=== PATIENT | male | born 1955 | race Caucasian/White ===

== ENCOUNTER 2016-12-08 03:37 | Inpatient (IN) | payer OTHER ==
[~2016-12-08] VITALS: Ht 180.3 cm; Wt 147.9 kg
[~2016-12-08 03:37] MED LIST: AMLODIPINE BESYL5 M1 PO; FLOMAX0.4 M1 PO; LIPITOR10 M1 PO; LOSARTAN-HCTZ1 EAC2 PO; MULTIVITAMINS1 EAC9 PO; PRESERVISION A1 EAC1 PO; PROVENTIL HFA6.7 GM PO
[2016-12-08] MEDS ORDERED: COLACE100 M1 PO (10:42)
[2016-12-08] MEDS ORDERED: MIRALAX17 G1 PO (10:42)
[2016-12-08] MEDS ORDERED: DILAUDID4 M1 PO (10:42)
[2016-12-08] MEDS ORDERED: MS CONTIN30 M1 PO (10:42)
[2016-12-08] MEDS ORDERED: ASPIRIN EC325 M2 PO (10:42)
--- NOTE | 2016-12-08 10:44 | Patient Discharge Instructions ---
Discharge Instructions General Discharge Information You were seen/treated for: knee pain You had these procedures: total knee replacement Watch for these problems: temp>101, increased redness or drainage of wounds No bath, but you may shower: Yes Other wound care: Keep incisions clean and dry, may shower no bathing or soaking Diet Recommended Diet: Heart Healthy Activity Activity Self Limited: Yes Activity Limited to: Weight bear as tolerated Acute Coronary Syndrome Inclusion Criteria At DC or during hospital stay patient has or had the following: ACS DIAGNOSIS No Discharge Core Measures Meds if any: Prescribed or Continued at Discharge Meds if any: NOT Prescribed or Continued at Discharge Congestive Heart Failure Inclusion Criteria At DC or during hospital stay patient has or had the following: CHF DIAGNOSIS No Discharge Core Measures Meds if any: Prescribed or Continued at Discharge Meds if any: NOT Prescribed or Continued at Discharge Cerebrovascular accident Inclusion Criteria At DC or during hospital stay patient has or had the following: CVA/TIA Diagnosis No Discharge Core Measures Meds if any: Prescribed or Continued at Discharge Meds if any: NOT Prescribed or Continued at Discharge Venous thromboembolism Inclusion Criteria VTE Diagnosis No VTE Type NONE VTE Confirmed by (Test) NONE Discharge Core Measures - Per Current guidelines, there needs to be overlap - treatment for the first 5 days of Warfarin therapy. - If discharged on Warfarin prior to 5 days of - overlap therapy, the patient will need to be - assessed for post discharge needs including - *Post discharge parental anticoagulation - *Warfarin and/or parental anticoagulation education - *Follow up date to check INR post discharge At least 5 days overlap therapy as Inpatient No Meds if any: Prescribed or Continued at Discharge Note: Overlap Therapy is Warfarin and Anticoagulant Meds if any: NOT Prescribed or Continued at Discharge
--- NOTE | 2016-12-08 10:46 | Admission Core Measures ---
Admission Meds I reviewed the following Meds: Current Medications Sig/Zahra Start time Last Medication Dose Stop Time Status Admin Albuterol Sulfate 2 PUF Q4P PRN 12/08 1045 AC (Ventolin) Amlodipine Besylate 5 MG QPM 12/08 2200 AC (Norvasc) Atorvastatin Calcium 10 MG QPM 12/08 2199 AC (Lipitor) Losartan Potassium 100 MG DAILY 12/09 1000 AC (Cozaar) Tamsulosin HCl 0.8 MG QPM 12/08 2199 AC (Flomax) Acute Coronary Syndrome Inclusion Criteria ACS Diagnosis No Inpatient Core Measures LDL Reminder: If No, please order W/I first 24hr of stay Congestive Heart Failure Inclusion Criteria CHF Diagnosis No Cerebrovascular accident Inclusion Criteria CVA/TIA Diagnosis No Inpatient Core Measures Bedside Swallow Eval Reminder: If BSE failed, place ST order Antithrombotic Reminder: Order Antithrombotic Medication by end of day 2 Antithrombotic Reminder: Document Reason Antithrombotic Not ordered by end of day 2 AFIB/Flutter Reminder: If Present, add to problem list AFIB/Flutter Reminder: Order Anticoag Medication for pts with AFIB/Flutter Atherosclerosis Reminder: If Present, add to problem list LDL Reminder: If No, please order W/I first 24hr of stay PT Order Reminder: If No, please order Venous thromboembolism Inpatient Core Measures VTE Risk Factors: Age > 40, Surgery VTE Prophylaxis Ordered Inpt Mech & Pharm No Mech VTE prophylaxis d/t No contraindications No VTE Pharm Prophylaxis d/t No contraindications Inclusion Criteria - Per Current guidelines, there needs to be overlap - treatment for the first 5 days of Warfarin therapy. - Parenteral Anticoagulation (IV or SC) needs to be - given along with Warfarin therapy. VTE Diagnosis No VTE Type NONE VTE Confirmed by (Test) NONE Problem List As ranked by this Provider includes Assessment & Plan 1. Status post total knee replacement, left HOME MEDS Home Med List Albuterol Sulfate (Proventil Hfa) 90 MCG HFA.AER.AD 2 PUFF PO EVERY 4 PRN ASTHMA (Reported) Amlodipine Besylate 5 MG TABLET 1 TAB PO NIGHTLY HTN (Reported) Aspirin (Ecotrin*) 325 MG TABLET.DR 1 TAB PO BID BLOOD THINNER Atorvastatin Calcium (Lipitor) 10 MG TABLET 1 TAB PO NIGHTLY CHOL (Reported) Docusate Sodium (Colace) 100 MG CAPSULE 1 CAP PO BID CONSTIPATION Hydromorphone HCl (Dilaudid) 4 MG TABLET 1-2 TAB PO Q4P PAIN Losartan/Hydrochlorothiazide (Losartan-Hctz 100-25 MG Tab) 100 MG-25 MG TABLET 1 TAB PO DAILY HTN (Reported) Morphine Sulfate (Ms Contin) 30 MG TABLET.ER 1 TAB PO BID PAIN Multiple Vitamin (Multivitamins) 1 EACH TABLET 1 TAB PO DAILY PROPHO ( Reported) Polyethylene Glycol 3350 (Miralax) 17 GRAM POWD.PACK 1 PAC PO DAILY CONSTIPATION Tamsulosin HCl (Flomax) 0.4 MG CAP.ER.24H 2 TAB PO NIGHTLY BPH (Reported) Vit C/E/Zn/Coppr/Lutein/Zeaxan (Preservision Areds 2 Softgel) 250-200-40 CAPSULE 1 TAB PO BID EYES (Reported)
--- NOTE | 2016-12-08 10:50 | Surgical Discharge Summary ---
Visit Information Visit Dates Admission Date: 12/08/16 Discharge Date: 12/10/16 History of Present Illness Chief Complaint: Knee pain Surgical History Pertinent Surgical History: none (See H and P) Review of Systems: See H and P Hospital Course Course Attending Physician: СЕРГЕЙ NUNEZ MD Primary Care Physician: DENIS PATRICK,[facility] Course: Pt underwent L TKR on 12/[address] Nunez and was brought to the PACU in stable condition. Over the next couple of days, he was able to tolerated a regular diet, was able to void spontaneously after the sparrow was discontinued and his pain was controlled on oral medication. He was taking ASA 325mg po bid for dvt ppx. He had an ultrasound done on post-op day#1 due to calf tenderness, which was repeated also on post-op day#2 due to persistent tenderness. Both venous doppler studies were negative for dvt. His pain controll improved with the addition of toradol and ms contin. He worked with PT - [facility]AT and was cleared for discharge home with home health services and home PT on post-op day#2. All instructions given. Complications: None Allergies: Coded Allergies: No Known Allergies (12/05/16) Significant Procedures: L TKR - see op report Disposition Summary Disposition Principal Diagnosis: OA, DJD Additional Diagnosis: s/p L TKR Discharge Disposition: home health services Discharge Instructions General Discharge Information Code Status: Full Code Patient's Diet: Heart healthy Patient's Activity: WBAT Follow-Up Instructions/Appts: Keep scheduled appointment or call to be seen within two weeks of surgery Medications at Discharge Discharge Medications: Continue taking these medications: Losartan/Hydrochlorothiazide (Losartan-Hctz 100-25 MG Tab) 100 MG-25 MG TABLET 1 Tablet ORAL DAILY Amlodipine Besylate (Amlodipine Besylate) 5 MG TABLET 1 Tablet ORAL NIGHTLY Tamsulosin HCl (Flomax) 0.4 MG CAP.ER.24H 2 Tablet ORAL NIGHTLY Atorvastatin Calcium (Lipitor) 10 MG TABLET 1 Tablet ORAL NIGHTLY Albuterol Sulfate (Proventil Hfa) 90 MCG HFA.AER.AD 2 PUFF ORAL EVERY 4 as needed for ASTHMA Vit C/E/Zn/Coppr/Lutein/Zeaxan (Preservision Areds 2 Softgel) 250-200-40 CAPSULE 1 Tablet ORAL TWICE DAILY Multiple Vitamin (Multivitamins) 1 EACH TABLET 1 Tablet ORAL DAILY Start taking the following new medications: Morphine Sulfate (Ms Contin) 30 MG TABLET.ER 1 Tablet ORAL TWICE DAILY Qty = 6 No Refills Hydromorphone HCl (Dilaudid) 4 MG TABLET 1-2 Tablet ORAL EVERY 4 HOURS NEEDED Qty = 36 No Refills Docusate Sodium (Colace) 100 MG CAPSULE 1 Capsule ORAL TWICE DAILY Qty = 14 No Refills Polyethylene Glycol 3350 (Miralax) 17 GRAM POWD.PACK 1 Packet ORAL DAILY Qty = 7 No Refills Instructions: dissolve in water Aspirin (Ecotrin*) 325 MG TABLET.DR 1 Tablet ORAL TWICE DAILY Qty = 60 No Refills Copies To: DENIS PATRICK,NAKIA; ENRIQUE PATRICK,СЕРГЕЙ
--- NOTE | 2016-12-08 13:38 | Operative Report ---
Operative/Inv Procedure Report Surgery Date: 12/08/16 Name of Procedure: Total knee replacement Pre-Operative Diagnosis: Primary left knee DJD Post-Operative Diagnosis: Same Estimated Blood Loss: 50ml to 100ml Surgeon/Motor Expert: ENRIQUE PATRICK,СЕРГЕЙ Rai Anesthesia: block Operative/Procedure Note Note: Description of Procedure: The patient was taken to the operating room and positively identified. After induction of spinal anesthesia and administration of appropriate pre-operative antibiotics, the patient was positioned supine on the operating room table and all bony prominences were well padded. A well-padded pneumatic tourniquet was placed on the left upper thigh. After performing a surgical timeout, the left lower extremity was prepped and draped in the usual sterile fashion. After exsanguination with Esmarch the tourniquet was inflated to 260mm of mercury. A standard medial parapatellar approach was made to the knee. This was carried down through skin and subcutaneous tissue to the level of the fascia. Meticulous hemostasis was maintained with Bovie electrocautery. The extensor mechanism and patellar retinaculum were opened sharply and the patella was everted. The infrapatellar fat was resected in order to improve exposure. Osteophytes were trimmed from the patella and femoral condyles and the patella was re-everted and tucked laterally. A medial release was performed and the cruciate ligaments were resected. The tibia was then subluxed anteriorly. Utilizing the appropriate extra-medullary guide, the proximal tibia was trimmed perpendicular to the long axis of the tibial shaft. Attention was then turned to the femur. After opening the medullary canal, the distal femoral cut was made in 6 degrees of valgus utilizing the appropriate intra-medullary guide. The extension gap was checked and found to be appropriate. The femur was then sized and the remainder of the femoral cuts were made with a size 6 4-in-1 femoral cutting guide. The flexion gap was checked and found to be symmetric and appropriate. The knee was then trialed with a size 6 femoral component, a size 7 tibial component and a size 13 mm polyethylene insert. The patella was not resurfaced due to the fact that he had a prior quad tendon repair and it was in reasonably good condition. This yielded excellent range of motion, stability and patellar tracking. All trial components were removed and the knee was copiously irrigated with sterile saline. All components were cemented into place with RIDERS cement. All the components were of the Sivakumar Triathlon knee system of the above stated sizes. The knee was again irrigated after cementation. The extensor mechanism and patellar retinaculum were repaired using interrupted #1 vicryl suture. The skin was re-approximated with 2-0 vicryl and closed with pipo. A sterile dressing was applied, the tourniquet was deflated, the patient was awakened and taken to the recovery room in satisfactory condition.
--- NOTE | 2016-12-08 14:10 | NUR ---
RECEIVED FROM PACU: A 61 YEAR OLD MALE S/P LEFT TOTAL KNEE REPLACEMENT. ALERT ORIENTED X3. SPOUSE AT BEDSIDE. DRESSING TO LEFT KNEE INTACT, DURACOLD IN PLACE. ON-Q PUMP DRESSING INTACT, AT 12ML/HR. IST GIVEN AND INSTRUCTED. DTV BY 1800. URINAL IN PLACE. REVIEWED POC. CALL CALL IN REACH. SEE NURSING ASSESSMENT FLOWSHEETS FOR FURTHER DOCUMENTATION.
[2016-12-08 14:15] VITALS: BP 140/78
[2016-12-08 15:40] VITALS: BP 130/80
--- NOTE | 2016-12-08 15:52 | PN- Orthopedic ---
Subjective Subjective: Post op check OOB - just ambulated with PT Pain is well controlled, no nausea Objective Vital Signs and I&Os Vital Signs Date Time Temp Pulse Resp B/P Pulse O2 O2 Flow FiO2 Ox Delivery Rate 12/08 1415 Room Air 12/08 1415 95.1 68 18 140/78 93 Room Air Intake & Output 12/08 1600 12/08 0800 12/08 0000 12/07 1600 12/07 0800 12/07 0000 Intake Total Output Total Balance Patient 326 lb Weight Physical Exam: VSS, afebrile void: 600 cc General: alert and oriented times three Chest: clear anteriorly bilaterally, RRR Abd: soft, good bs Ext: warm, no edema, positive sensate Wound: dressed, dry, ice pack in place Current Medications: Current Medications Sig/Zahra Start time Last Medication Dose Route Stop Time Status Admin Acetaminophen 975 MG ONCE ONE 12/08 0645 DC 12/08 PO 12/08 0646 0800 Albuterol Sulfate 2 PUF Q4P PRN 12/08 1045 AC INH Amlodipine Besylate 5 MG QPM 12/08 2200 AC PO Aspirin 325 MG BID 12/08 2200 AC PO Atorvastatin Calcium 10 MG QPM 12/08 2200 AC PO Cefazolin Sodium 3 GM Q8H 12/08 1815 DC N/A 1 UNIT IV 12/09 0259 Cefazolin Sodium 3,000 MG Q8H 12/08 1815 AC Sodium Chloride 100 ML IV 12/09 0244 Cefazolin Sodium 3,000 MG ONCE ONE 12/08 0645 DC 12/08 Sodium Chloride 100 ML IV 12/08 0714 1015 Dextrose/Sodium 1,000 ML .[id number] 12/08 1430 AC 12/08 Chloride IV 1430 Docusate Sodium 100 MG BID 12/08 2200 AC PO Fentanyl Citrate 100 MCG .STK-MED ONE 12/08 07 DC IM 12/08 0715 Hydrochlorothiazide 25 MG DAILY 12/09 1000 AC PO Hydromorphone HCl 2 MG Q4P PRN 12/08 1430 AC 12/08 PO 1522 Hydromorphone HCl 4 MG Q4P PRN 12/08 1430 AC PO Losartan Potassium 100 MG DAILY 12/09 1000 AC PO Midazolam HCl 4 MG .STK-MED ONE 12/08 713 DC IM 12/08 0715 Morphine Sulfate 2 MG Q3P PRN 12/08 1430 AC IV Ondansetron HCl 4 MG Q6P PRN 12/08 1430 AC IV Oxycodone HCl 10 MG .STK-MED ONE 12/08 0843 DC PO 12/08 0844 Oxycodone HCl 10 MG ONCE ONE 12/08 0645 DC 12/08 PO 12/08 0646 0800 Polyethylene Glycol 17 GM DAILY 12/09 1000 AC PO Ropivacaine 500 ML ONCE ONE 12/08 1230 AC 12/08 ON-Q Ball 1 BAG INJ 12/10 0609 1245 Tamsulosin HCl 0.8 MG QPM 12/08 2200 AC PO Tranexamic Acid 2,000 MG .STK-MED ONE 12/08 0714 DC IV 12/08 0715 Assessment/Plan Assessment/Plan 61 male s/p L TKR pain management PT-wbat dc ivf - tolerating diet dc home 1-2 days Core Measures/Miscellaneous Venous Thromboembolism VTE Risk Factors: Age > 40, Surgery VTE Contraindications: No Contraindications VTE Prophylaxis Ordered Inpt: Mech & Pharm VTE Diagnosis: No VTE Type: NONE VTE Confirmed by (Test): NONE Beta Iliana Is Beta Iliana a Home Med? No Antibiotics Is Patient on Antibiotics? Yes If Yes: prophylaxis (24 hrs post op)
[2016-12-08 19:12] VITALS: BP 127/69
[2016-12-08 21:11] VITALS: BP 136/42
[2016-12-09 00:02] VITALS: BP 150/62
[2016-12-09 03:21] VITALS: BP 120/70
--- NOTE | 2016-12-09 07:52 | PN- Orthopedic ---
Subjective Subjective: The patient was seen this morning postoperatively day 1. He reports that his pain is not under good control at the current time despite current pain regiment. He has no complaints of current time and denies any chest pain or difficulty breathing. Objective Vital Signs and I&Os Vital Signs Date Time Temp Pulse Resp B/P Pulse O2 O2 Flow FiO2 Ox Delivery Rate 12/09 0321 99.6 89 18 120/70 92 Room Air 12/09 0002 98.0 91 20 150/62 94 Room Air 12/08 2118 98.3 91 20 136/42 12/08 2118 98.3 91 20 136/42 12/08 2111 98.3 91 20 136/42 91 12/08 1912 97.5 77 20 127/69 93 12/08 1540 97.8 73 19 130/80 96 12/08 1415 Room Air 12/08 1415 95.1 68 18 140/78 93 Room Air Intake & Output 12/09 0800 12/09 0000 12/08 1600 12/08 0800 12/08 0000 12/07 1600 Intake Total 120 1190 Output Total 1000 750 Balance -880 440 Intake, IV 150 Intake, Oral 120 1040 Output, Urine 1000 750 Patient 326 lb Weight Physical Exam: Gen.: Alert and complaining of incisional pain Skin: Warm and dry Extremities: Bilateral lower extremities are warm without significant edema. Gross motor and sensory are intact. There is significant left calf tenderness upon palpation. The surgical dressing is clean, dry, and intact. There is an On-Q pain pump intact. Assessment/Plan Assessment/Plan Assessment: 61-year-old male status post left total knee arthroplasty postoperative day #1. The patient's pain is not adequately controlled at the current time and he has calf tenderness upon exam. Plan: Will add 15mg of MS contin q8hrs for additional pain management Hep-Lock IV fluids Follow-up morning laboratory studies GI and DVT prophylaxis Continue aspirin 325mg po bid Out of bed with physical therapy Will order a left lower extremity ultrasound to rule out DVT Core Measures/Miscellaneous Venous Thromboembolism VTE Risk Factors: Age > 40, Surgery VTE Contraindications: No Contraindications VTE Prophylaxis Ordered Inpt: Mech & Pharm VTE Diagnosis: No VTE Type: NONE VTE Confirmed by (Test): NONE Beta Iliana Is Beta Iliana a Home Med? No Antibiotics Is Patient on Antibiotics? No
[2016-12-09 08:02] LABS: ABSOLUTE BASOPHIL COUNT 0 /CUMM (0.0-0.2); ABSOLUTE EOSINOPHIL COUNT 0 /CUMM (0.0-0.7); ABSOLUTE GRANULOCYTE CT 17.7 /CUMM (1.4-6.5); ABSOLUTE LYMPH COUNT 1.5 /CUMM (1.2-3.4); ABSOLUTE MONOCYTE COUNT 1.8 /CUMM (0.10-0.60); BASOPHIL % 0 % (0.0-2.0); EOSINOPHIL % 0.1 % (0-5); HEMATOCRIT 35.8 % (42-52); MEAN CORPUSCULAR HGB 31.8 PG (27.0-31.0); MEAN CORPUSCULAR VOLUME 93.7 FL (80.0-94.0); MEAN PLATELET VOLUME 7.9 FL (7.4-10.4); RED BLOOD CELL CT 3.82 /CUMM (4.70-6.10)
[2016-12-09 08:25] VITALS: BP 140/60
[2016-12-09 08:50] LABS: GRANULOCYTE % 84.3 % (42.2-75.2); PLATELET COUNT 305 /CUMM (130-400)
--- NOTE | 2016-12-09 10:27 | ULTRASOUND REPORT ---
EXAMINATION: US DUPLEX EXTREMITY VEINS, LEFT CLINICAL INFORMATION: Status post left TKA with left calf pain. COMPARISON: None. TECHNIQUE: Doppler spectral analysis and color flow Doppler imaging was performed of the left lower extremity. Compression and augmentation maneuvers were performed. FINDINGS: The common femoral, profunda femoral, superficial femoral, greater saphenous, and popliteal veins were well-identified and normal. The imaged portion of the tibial peroneal trunk is patent. The veins demonstrate normal compressibility and color fill-in. Calf vein evaluation is limited due to overlying bandages. A small to moderate-sized Rowland's cyst is present, measuring 1 x 1.8 x 3.6 cm. IMPRESSION: No evidence for left lower extremity deep vein thrombosis. Evaluation of the calf veins is limited due to overlying bandages.
[2016-12-09 15:58] VITALS: BP 140/68
[2016-12-10 00:13] VITALS: BP 172/74
--- NOTE | 2016-12-10 07:37 | PN- Orthopedic ---
Subjective Subjective: POD#2 S/P LEFT TKA VERY UNCOMFORTABLE THIS AM C/O LEFT CALF PAIN DENIES CP, SOB, NO N+V U/S YESTERDAY NEGATIVE FOR DVT(BUT LIMITED DUE TO BANDAGE) Objective Vital Signs and I&Os Vital Signs Date Time Temp Pulse Resp B/P Pulse O2 O2 Flow FiO2 Ox Delivery Rate 12/10 0013 98.4 112 20 172/74 97 Room Air 12/09 2118 98 140/68 12/09 2116 98 140/68 12/09 1558 98.6 98 19 140/68 96 12/09 1027 90 140/60 12/09 0825 98.8 90 18 140/60 93 Room Air Intake & Output 12/10 0800 12/10 0000 12/09 1600 12/09 0812/09 0000 12/08 1600 Intake Total 945 555 0638 120 1190 Output Total 088 338 6910 750 Balance 200 -600 1330 -880 440 Intake, IV 50 150 Intake, Oral 687 758 4734 120 1040 Output, Urine 597 216 8004 750 Patient 326 lb Weight Physical Exam: CV: RRR LUNGS: CLEAR ABD: +BS, NON TENDER EXT: DRSG CHANGED, WOUND C/D/I LEG CALF TENDERNESS TO PALP NO HOMANS DISTAL CMS INTACT MILD ANTERIOR KNEE ERYTHEMA, NO EVIDENCE OF CELLULITIS Assessment/Plan Assessment/Plan ORTHO STABLE PLAN TORADOL 30MG IV X1 NOW, AND HOME PO TORADOL FOR 5 DAYS OOB WITH PT CONSIDER REPEAT U/S NOW THAT DRSG IS OFF HOME D/C PLANNING Core Measures/Miscellaneous Venous Thromboembolism VTE Risk Factors: Age > 40, Surgery VTE Contraindications: No Contraindications VTE Prophylaxis Ordered Inpt: Mech & Pharm VTE Diagnosis: No VTE Type: NONE VTE Confirmed by (Test): NONE Beta Iliana Is Beta Iliana a Home Med? No Antibiotics Is Patient on Antibiotics? No
[2016-12-10 08:25] VITALS: BP 120/64
[2016-12-10 10:36] VITALS: BP 120/64
--- NOTE | 2016-12-10 10:49 | ULTRASOUND REPORT ---
EXAMINATION: US TRIPLEX LOWER EXTREMITY, LEFT CLINICAL INFORMATION: Postoperative COMPARISON: 12/09/2016 TECHNIQUE: Color-flow triplex imaging with spectral analysis and compression Doppler were performed on the left lower extremity. FINDINGS: Respiratory variation, normal compression and augmented flow are noted throughout the lower extremity. The visualized common femoral vein, superficial femoral vein, profunda femoral vein, popliteal vein and the posterior tibial/peroneal trunk venous segments show no evidence of deep venous thrombosis. The mid calf veins were not visualized despite removal of bandage There is a 3.6 x 1.0 x 1.9 cm complex cyst in the popliteal fossa, unchanged. IMPRESSION: No evidence of deep vein thrombosis, accounting for nonvisualization of the mid left calf veins despite removal of bandage material. The posterior tibial/peroneal trunk is patent. Stable cyst in the popliteal fossa.
[2016-12-10] MEDS ORDERED: KETOROLAC TROME10 M1 PO (12:25)
== END 2016-12-10 17:07 | disposition home health service (06) | DRG 470 ==
LOC: ENRESERVDT → ENRESERVTM → SDA 03:37 → ENPENDDIS 03:37 → 2NB 13:56
PROVIDERS: Physician Assistant Surgical; ADMIT Orthopaedic Surgery
PROC: 0SRD0J9 Replacement of Left Knee Joint with Synthetic Substitute, Cemented, Open Approach (ICD-10-PCS; principal; 2016-12-08)
DX: M17.12 Unilateral primary osteoarthritis, left knee (principal); Z68.42 Body mass index [BMI] 45.0-49.9, adult; I10 Essential (primary) hypertension; N40.0 Benign prostatic hyperplasia without lower urinary tract symptoms; E66.9 Obesity, unspecified
CPT/HCPCS: 2NBSP; 82436; 88305; 97110-GO; 97116-GO; 97161-GP; 97530-GO; C1713; J0690; J1885; J2795; J3490; J7042